=== PATIENT | female | born 1990 | race Caucasian/White ===

== ENCOUNTER → 2021-12-14 | Outpatient (REF) | LOC: M LABSMTC 09:32 | PROVIDERS: ATTEND Family Medicine | DX: Z11.52 Encounter for screening for COVID-19 (principal) ==

== ENCOUNTER 2022-04-17 01:18 | Emergency (ER) | payer OTHER ==
[~2022-04-17] VITALS: Ht 165.1 cm; Wt 125.7 kg
[2022-04-17 01:19] VITALS: BP 158/110
[2022-04-17] MEDS ORDERED: XANA1TAB2 PO (01:31)
[2022-04-17] MEDS ORDERED: GUAN2TAB PO (01:31)
[2022-04-17] MEDS ORDERED: GABA-283 PO (01:31)
[2022-04-17] MEDS ORDERED: ADDE30CA3 PO (01:31)
[2022-04-17] MEDS ORDERED: IBUP200C90 PO (01:33)
[2022-04-17] MEDS ORDERED: ACET-683 PO (01:33)
== END 2022-04-17 03:38 | disposition left against medical advice (07) ==
LOC: M ED 01:18
DX: Z53.21 Procedure and treatment not carried out due to patient leaving prior to being seen by health care provider (principal)